=== PATIENT | male | born 1965 | race Caucasian/White ===

== ENCOUNTER → 2018-02-09 | Outpatient (CLI) | payer OTHER | END | disposition home or self-care (01) | LOC: ECHO 07:48 | DX: I48.0 Paroxysmal atrial fibrillation (principal); I08.1 Rheumatic disorders of both mitral and tricuspid valves | CPT/HCPCS: 93306 ==

== ENCOUNTER → 2019-03-10 | Outpatient (CLI) | payer OTHER ==
[2016-07-07 10:54] VITALS: BP 110/71
[~2019-03-10] MED LIST: FLEC100T PO; METO-239 PO; METO25TA4 PO
--- NOTE | 2019-03-14 10:56 | CARD ---
MR#: [id number] Date of Study: 03/10/2019 Ordering Physician: KATI ZAMORANO, Referring Physician: KATI ZAMORANO, Tech: Debbie Valle APPROVED REPORT EXAM: Two-dimensional and M-mode echocardiogram with Doppler and color Doppler. Other Information Quality : AverageHR: 52bpm INDICATION Atrial Fibrillation 2D DIMENSIONS RVDd3.1 (2.9-3.5cm)Left Atrium(2D)3.9 (1.6-4.0cm) IVSd1.0 (0.7-1.1cm)Aortic Root(2D)3.4 (2.0-3.7cm) LVDd5.4 (3.9-5.9cm)LVOT Diameter2.3 (1.8-2.4cm) PWd0.9 (0.7-1.1cm)LVDs3.6 (2.5-4.0cm) FS (%) 33.8 %SV88.4 ml LVEF(%)62.2 (>50%) Aortic Valve AoV Peak Paco.119.3cm/sAoV VTI24.2cm AO Peak GR.5.7mmHgLVOT Peak Paco.113.2cm/s LVOT VTI 22.00cmAO Mean GR.3mmHg BINU (VMAX)2.07ze3ATQ (VTI)3.68cm2 Mitral Valve MV E Nfsksptd27.3cm/sMV DECEL CMVY527pp MV A Bysdohvf41.6cm/sMV YCA97xg E/A Ratio1.4MVA (PHT)3.02cm2 TDI E/Lateral E'6.8E/Medial E'6.4 Pulmonary Valve PV Peak Vhryhcjc03.9cm/sPV Peak Grad.3mmHg Tricuspid Valve TR P. Bcrangai549dn/sRAP XEFQVTUG3wsXn TR Peak Gr.77rhJyFPGQ24oqLo Pulmonary Vein S1 Ygdmgntt44.5cm/sD2 Nfcabcks15.3cm/s PVa erjazhdk744vkqd LEFT VENTRICLE The left ventricle is normal size. There is normal left ventricular wall thickness. The left ventricu lar systolic function is normal. The Ejection Fraction is 55%. There is normal LV segmental wall mayra on. RIGHT VENTRICLE The right ventricle is normal size. There is normal right ventricular wall thickness. The right ventr icular systolic function is normal. ATRIA The left atrium size is normal. The right atrium size is normal. The interatrial septum is intact wit h no evidence for an atrial septal defect or patent foramen ovale as noted on 2-D or Doppler imaging. AORTIC VALVE The aortic valve is thickened but opens well. Doppler and Color Flow revealed no significant aortic r egurgitation. There is no significant aortic valvular stenosis. MITRAL VALVE The mitral valve is normal in structure and function. There is no evidence of mitral valve prolapse. There is no mitral valve stenosis. Doppler and Color Flow revealed no mitral valve regurgitation note d. TRICUSPID VALVE The tricuspid valve is normal in structure and function. Doppler and Color Flow revealed trace tricus pid regurgitation with an estimated PAP of 21 mmHg. There is no tricuspid valve stenosis. PULMONIC VALVE The pulmonic valve is not well visualized. Doppler and Color Flow revealed no pulmonic valvular regur gitation. GREAT VESSELS The aortic root is normal in size. The IVC is normal in size and collapses >50% with inspiration. PERICARDIAL EFFUSION There is no evidence of significant pericardial effusion. Critical Notification Critical Value: No <Conclusion> The left ventricular systolic function is normal. The Ejection Fraction is 55%. There is normal LV segmental wall motion. Trace tricuspid regurgitation with an estimated PAP of 21 mmHg. There is no evidence of significant pericardial effusion. Signed by : Kati Zamorano, Electronically Approved : 03/10/2019 14:45:47
== END | disposition home or self-care (01) ==
LOC: ECHO 12:49
PROVIDERS: ATTEND Internal Medicine Cardiovascular Disease
DX: I48.0 Paroxysmal atrial fibrillation (principal)
CPT/HCPCS: 93306

== ENCOUNTER → 2020-09-05 | Outpatient (CLI) | payer OTHER ==
[2016-07-07 10:54] VITALS: BP 110/71
--- NOTE | 2020-09-05 16:20 | CARD ---
MR#: [id number] Date of Study: 09/05/2020 Ordering Physician: KATI ZAMORANO, Referring Physician: KATI ZAMORANO, Tech: Debbie Valle APPROVED REPORT EXAM: Two-dimensional and M-mode echocardiogram with Doppler and color Doppler. Other Information Quality : AverageHR: 50bpm INDICATION Atrial Fibrillation 2D DIMENSIONS RVDd3.3 (2.9-3.5cm)Left Atrium(2D)3.5 (1.6-4.0cm) IVSd1.2 (0.7-1.1cm)Aortic Root(2D)3.4 (2.0-3.7cm) LVDd5.3 (3.9-5.9cm)LVOT Diameter2.0 (1.8-2.4cm) PWd1.1 (0.7-1.1cm)LVDs3.5 (2.5-4.0cm) FS (%) 33.6 %SV82.3 ml LVEF(%)61.9 (>50%) Aortic Valve AoV Peak Paco.113.9cm/sAoV VTI22.4cm AO Peak GR.5.2mmHgLVOT Peak Paco.97.5cm/s LVOT VTI 19.07cmAO Mean GR.3mmHg BINU (VMAX)2.15gt6FNA (VTI)2.68cm2 Mitral Valve MV E Uhxsfzlh85.0cm/sMV DECEL AGTB244mr MV A Ebvryihj86.9cm/sMV [facility]06ft E/A Ratio1.3MVA (PHT)2.55cm2 TDI E/Lateral E'4.6E/Medial E'5.4 Pulmonary Valve PV Peak Rnnxbbvj35.7cm/sPV Peak Grad.3mmHg Tricuspid Valve TR P. Jrblawxi349ug/sRAP YFUFUESA1qrVf TR Peak Gr.58ryCcZQOH85rvIo Pulmonary Vein S1 Zcqoplbo38.6cm/sD2 Swfudmpq23.4cm/s PVa fbjkeovm023rype LEFT VENTRICLE The left ventricle is normal size. There is mild concentric left ventricular hypertrophy. The left ve ntricular systolic function is normal The Ejection Fraction is 55-60%. There is normal LV segmental w all motion. Transmitral Doppler flow pattern is Grade II-pseudonormal filling dynamics. RIGHT VENTRICLE The right ventricle is normal size. There is normal right ventricular wall thickness. The right ventr icular systolic function is normal. ATRIA The left atrium size is normal. The right atrium size is normal. The interatrial septum is intact wit h no evidence for an atrial septal defect or patent foramen ovale as noted on 2-D or Doppler imaging. AORTIC VALVE The aortic valve is normal in structure and function. Doppler and Color Flow revealed no significant aortic regurgitation. There is no significant aortic valvular stenosis. Calculated aortic valve area is 3.2 cm2 with maximum pressure gradient of 6 mmHg and mean pressure gradient of 3 mmHg. MITRAL VALVE The mitral valve is normal in structure and function. There is no evidence of mitral valve prolapse. There is no mitral valve stenosis. Doppler and Color-flow revealed trace mitral regurgitation. TRICUSPID VALVE The tricuspid valve is normal in structure and function. Doppler and Color Flow revealed trace tricus pid regurgitation with an estimated PAP of 25 mmHg. There is no tricuspid valve stenosis. PULMONIC VALVE The pulmonic valve is not well visualized. Doppler and Color Flow revealed trace pulmonic valvular re gurgitation. GREAT VESSELS The aortic root is normal in size. The ascending aorta is normal in size. The IVC is normal in size a nd collapses >50% with inspiration. PERICARDIAL EFFUSION There is no evidence of significant pericardial effusion. Critical Notification Critical Value: No <Conclusion> The left ventricular systolic function is normal The Ejection Fraction is 55-60%. There is normal LV segmental wall motion. Transmitral Doppler flow pattern is Grade II-pseudonormal filling dynamics. Trace mitral regurgitation. Trace tricuspid regurgitation with an estimated PAP of 25 mmHg. There is no evidence of significant pericardial effusion. Signed by : Kati Zamorano, Electronically Approved : 09/05/2020 16:20:08
== END ==
LOC: ECHO 10:44
PROVIDERS: ATTEND Internal Medicine Cardiovascular Disease
DX: I48.91 Unspecified atrial fibrillation (principal); I51.7 Cardiomegaly
CPT/HCPCS: 93306